=== PATIENT | female | born 1930 | race Caucasian/White ===

== ENCOUNTER 2018-06-18 12:52 | Emergency (ER) | payer SELFPAY ==
[~2018-06-18] VITALS: Ht 157.5 cm; Wt 63.5 kg
[2018-06-18] MEDS ORDERED: IBUP600 PO (14:39)
[2018-06-18] MEDS ORDERED: Cyclobenzaprine5 MG PO (14:39)
[2018-06-18] MEDS ORDERED: CITRATE OF MAG296 ML PO (14:39)
--- NOTE | 2018-06-18 15:56 | NUR ---
Initial Visit: Spoke with Pt's ED nurse Alexys and he reports the Pt's needs are geared towards case worker assistance. Alexys reports palliative care is welcome to visit with Pt. Pt reports her is on hospice and the agency is transfering him from home to [facility]. Pt reports her goals at this time is obtaining assistance with caregivers in the home, receiving physical therapy, and assistance with transportation to appointments. No other concerns reported at this time. Spoke with remy Fish and she contacted Boy in the ED. Boy will assist with Pt needs. Will remain available
== END 2018-06-18 18:02 | disposition home or self-care (01) ==
LOC: ER 12:52
DX: M54.42 Lumbago with sciatica, left side (principal); K59.00 Constipation, unspecified; L84 Corns and callosities
CPT/HCPCS: 99283; J1100